=== PATIENT | male | born 2000 | race Caucasian/White ===

== ENCOUNTER 2021-05-19 03:25 | Emergency (ER) | payer OTHER ==
[~2021-05-19] VITALS: Ht 190.5 cm; Wt 75.0 kg
[2021-05-19] MEDS ORDERED: ACETAMINOPHEN 325MG TABLET PO ONE (04:15)
[2021-05-19] MEDS ORDERED: SODIUM CHLORIDE 0.9% 1,000 ML IV ONE (05:00)
[2021-05-19] MEDS ORDERED: TAM75 PO (05:56)
[2021-05-19 06:25] VITALS: BP 112/61
== END 2021-05-19 06:35 | disposition home or self-care (01) ==
LOC: ER 03:25
DX: U07.1 COVID-19 (principal); B34.9 Viral infection, unspecified
CPT/HCPCS: 71045; 87804; 93005; 96360; 99285; C9803; J7030; U0003; U0005